=== PATIENT | female | born 1945 | race Caucasian/White ===

== ENCOUNTER 2023-07-09 16:02 | Emergency (ER) | payer MEDICARE, OTHER, SELFPAY ==
[2023-07-09 16:05] VITALS: BP 126/70; PULSE 57; RESP 18; TEMP 36.6; O2SAT 89; BMI 48.7
--- NOTE | 2023-07-09 16:15 | EDS_ITS ---
HPI History of Present Illness HPI Narrative: 77-year-old female was getting a pedicure today. When she went to stand she fell to the floor and had immediate pain to her mid to distal right femur. Denies any other injuries. No LOC. She is on no blood thinners. Says she was feeling fine today. Has not had any recent leg issues. About 15 years ago she had bilateral knee replacements done at [place]. Chief Complaint: Lower Extremity Injury Informant: patient Occured/Mechanism Mechanism/Context: Yes injury and Yes blunt trauma Onset/Context/Timing Onset: Today Context: Sudden Onset Timing: Continuous Current Severity: Moderate Maximum Severity: Severe Narrative Narrative: 77 year-old female fall after getting up from a pedicure injuring her right femur. Denies other complaints. Was brought by squad. And was given IV fentanyl prior to arrival. Prior similar symptoms: No Recent Illness/Hospitalization: No [facility] Medical History (Updated 07/09/23 @ 17:[address] Troy Bales MD) Hypertension Allergy/AdvReac Type Severity Reaction Status Date / Time Penicillins Allergy Mild Rash Verified 07/09/23 16:19 Sulfa (Sulfonamide Allergy Mild Rash Verified 07/09/23 16:19 Antibiotics) Surgical History (Updated 07/09/23 @ 17:[address] Troy Bales MD) Total knee replacement status Social History Smoking Status: Never smoker [facility] ED ENT ENT ED: Denies ear pain Cardiovascular Cardiovascular: Denies chest pain Respiratory/Chest Respiratory/Chest: Denies cough Gastrointestinal Gastrointestinal: Denies abdominal pain Genitourinary Genitourinary ED: Denies dysuria Musculoskeletal Musculoskeletal: Denies arthralgias, back pain or neck pain Integumentary Denies abscess Neurologic Neurologic: Denies headache(s) Psychiatric Psychiatric: Denies anxiety Endocrine Endocrinology: Denies polydipsia Hematologic/Lymphatic Hematologic/Lymphatic: Denies easy bleeding Allergic/Immunologic Allergic/Immunologic ED: Denies mouth swelling EXAM Physical Exam Narrative Exam Narrative: 77 year-old female vital signs are stable afebrile. Initial pulse ox elicited 89% on that rechecked. Patient is awake alert. Sitting upright in bed. She has a 6 air splint on her right lower extremity. She is only having mild pain at this time after the squad are given her IV fentanyl. HEENT exam unremarkable atraumatic. Pupils round reactive light. Neck nontender. Lungs clear equal symmetrical bilaterally. Heart regular rhythm rate about 60 no murmur. Chest wall and ribs nontender. Abdomen soft nontender. Both upper and left lower extremity have normal range of motion. Motor strength and sensation. They are nontender without deformity. 5-5 diet aide strength. Dorsi and plantarflexion intact. Her right leg is in an air splint. She has tenderness along the mid to distal third of the femur. Skins intact. Has had bilateral knee replacements years ago. Well healed scars. Right lower leg is nontender as is the ankle and foot. She is able to wiggle her toes. Normal touch sensation. Normal DP pulse. Neurologically she is awake and alert with no focal motor deficits. Const Vital Signs: 07/09/23 16:05 07/09/23 17:21 Temperature 98 F Temperature Source Axillary Pulse Rate 57 L Respiratory Rate 18 Blood Pressure 126/70 H Blood Pressure Mean 88 Pulse Ox 89 100 Oxygen Delivery Method Room Air Nasal Cannula Oxygen Flow Rate (L/min) 2 Positive well nourished and well developed; Negative for cachectic, contractures or unkempt General Appearance ED: well developed and NAD; Negative for unkempt, cachectic or contractures Nutritional Appearance: Negative for cachectic HEENT Reports moist mucous membranes normocephalic and atraumatic; Negative for trauma or tenderness Eyes PERRL General Eye ED: Negative for other Neck full ROM and supple Thyroid: Negative for tender Lymph Lymphatic: Negative for other Chest Wall inspection of chest normal and palpation of chest normal Chest: Negative for other Resp normal respiratory effort, no retractions and clear to auscultation bilaterally Effort and Inspection: Negative for pain with movement Auscultation: Negative for rales, rhonchi, wheezes or diminished lung sounds Cardio regular rate, regular rhythm, S1 normal heart sound, S2 normal heart sound and no murmurs Cardio Narrative: Heart rate 55-60. Rate: bradycardia GI non-tender, non-distended and no masses Inspection: Negative for abdominal distention Auscultation: normoactive bowel sounds Palpation: soft; Negative for tender, guarding or rebound tenderness present Bladder / Kidney Exam: No other Back/Spine no CVA tenderness General Back: Negative for CVA tenderness Cervical Spine: Negative for cervical spine tenderness Thoracic Spine / Upper Back: Negative for thoracic spinal tenderness Lumbar Spine / Lower Back: Negative for lumbar spinal tenderness Extremity normal to inspection and full ROM Extremity Narrative: Except mid to distal third right femur tenderness. Skin intact. Right foot neurovascular intact. The right knee, lower leg, ankle and foot are nontender. Normal touch sensation. General Extremety ED: Negative for cyanosis or edema General Extremity: Negative for cyanosis or edema Neuro oriented x3, CN's II-XII intact bilaterally, moves all extremities and no sensory deficits noted Sensorium / Orientation: alert, oriented to person, oriented to place and emelyn ented to time; Negative for orientation impaired, confused, lethargic or stuporous Motor Exam: strength 5/5 throughout Psych mental status grossly normal Appearance: Negative for unkempt Mood & Affect: Negative for anxious Skin no wounds Lesions: no lesions Rashes: no rashes Trauma: Negative for abrasion or laceration MDM MDM MDM Narrative Medical decision making narrative: 77-year-old female that fell getting up after a pedicure. Complaining of pain to her mid to distal right femur. X-ray being obtained. Patient be treated with IV morphine and Zofran. She had already received fentanyl by squad. Repeat exam at 520 discussed x-ray results with patient. She will be given another 6 mg of IV morphine for pain. History & Record Review Discussion w/independent historian: Patient and Family Additional record(s) reviewed:: Prior inpatient record, Prior outpatient record, Prior ED visit and Prior labs Lab Data Attestation: I reviewed the patient's lab results. Lab results narrative: CBC shows a white count 8. H&H 11.7 and 37. Platelets 203. Pelvis right hip x-ray shows no acute abnormality. Right femur x-ray shows a distal femur fracture just above the right knee prosthesis. It is displaced and comminuted. PT/INR normal. 1301. Electrolytes shows gap 3. BUN of 20 creatinine 1.31. Glucose 108. Repeat exam patient doing well at 5:20 PM. I did go over the x-rays with her. She understands she has a distal femur fracture. I spoke to orthopedic physician and he felt like the patient should be sent to a larger facility. I have already spoken to the transfer line for [facility] and they are speaking to the orthopedic physician about transfer arrangements. Labs: Laboratory Results - last 24 hr 07/09/23 17:03 WBC 8.4 RBC 3.90 L Hgb 11.7 L Hct 37.0 MCV 94.9 MCH 30.0 MCHC 31.6 L RDW Std Deviation 47.8 H RDW Coeff of Elio 13.8 Plt Count 203 MPV 10.7 PT 13.0 INR 1.0 Sodium 142 Potassium 4.1 Chloride 112 H Carbon Dioxide 27.0 Anion Gap 3 L BUN 20 H Creatinine 1.31 H Estim Creat Clear Calc 42.54 Est GFR (MDRD) Af Amer 51 L Est GFR (MDRD) Non-Af 42 L BUN/Creatinine Ratio 15.3 Glucose 108 H Calcium 7.8 L Radiography Diagnostic Testing: Right femur x-ray shows a distal femur fracture just above the prosthesis. It is comminuted and 100% displaced. 5 views interpreted by myself. Pelvis x-ray, 1 view, interpreted by myself shows no acute abnormality. No fracture or dislocation. Discharge Plan Triage Chief Complaint: Lower Extremity Injury ED Provider: Troy Bales Dx/Rx/DC Orders Clinical Impression: History of knee replacement, Fracture, femur, distal, History of hypertension, Fall Primary Care Provider: Alvarado Andrea Referrals: Alvarado Andrea MD [Primary Care Provider] - Disposition Disposition: Acute Care Hospital
[2023-07-09] MEDS: Ondansetron 4 MG/2 ML Vial IV (16:31)
[2023-07-09] MEDS: morphine 8 MG/ML Syringe 6 MG IV ×3 (16:32→21:14)
--- NOTE | 2023-07-09 17:00 | RAD_ITS ---
INDICATION: Trauma, fall, pain EXAMINATION/TECHNIQUE: X-RAY - RIGHT XR Femur Min 2 Views 2 VIEWS COMPARISON: None. FINDINGS: SOFT TISSUES: No soft tissue swelling or gas. Right knee prosthesis in place. BONES/JOINTS: Displaced, comminuted and angulated fracture of the distal femur proximal to the knee prosthesis with one shaft width posterior displacement of the distal fragment. Joint spaces anatomically maintained. RAD/Femur Min 2 Views IMPRESSION: Comminuted, displaced and angulated fracture of the distal femur. Electronically Signed: Kishan Calvillo MD at 17:46 EDT ,
--- NOTE | 2023-07-09 17:00 | RAD_ITS ---
INDICATION: Trauma, fall, pain EXAMINATION/TECHNIQUE: X-RAY - XR Pelvis 1 or 2 Views COMPARISON: None. FINDINGS: PELVIC BONES: No displaced fracture, destructive or sclerotic lesions. Note that overlapping bowel shadows may however obscure fine detail. Sacroiliac joints are unremarkable. No widening of the pubic symphysis. HIPS: The articular structures are unremarkable. No displaced fracture seen in this frontal view. SOFT TISSUES: No soft tissue swelling or gas. RAD/Pelvis 1 or 2 Views IMPRESSION: No evidence of displaced pelvic or hip fracture. Electronically Signed: Kishan Calvillo MD at 17:48 EDT ,
[2023-07-09 17:11] LABS: Hemoglobin 11.7 g/dL (12.0-15.0); Mean Corp Hgb Conc 31.6 g/dL (32-36); Mean Corpuscular Volume 94.9 fL (81-99); Mean Platelet Vol. 10.7 fl (6.2-12.0); Platelet Count 203 K/mm3 (150-450); RBC Distribution Width CV 13.8 % (11.6-14.6); RBC Distribution Width SD 47.8 fl (35.1-43.9); White Blood Count 8.4 K/mm3 (4.4-11.0)
[2023-07-09 17:21] VITALS: O2SAT 100
[2023-07-09 17:24] LABS: Anion Gap 3 (5-15); BUN 20 mg/dL (7-18); BUN/Creat Ratio 15.3 RATIO (10-20); Calcium,Total 7.8 mg/dL (8.5-10.1); Chloride 112 mmol/L (98-107); Creatinine, Serum 1.31 mg/dL (0.55-1.02); EST Glomerular Filtration Rate 42 mL/min (>60); Est Glom Filt Rate - Afr Amer 51 mL/min (>60); Estimated Creatinine Clearance 42.54 ml/min; Glucose 108 mg/dL (74-106); Potassium 4.1 mmol/L (3.5-5.1); Sodium Level 142 mmol/L (136-145)
[2023-07-09 18:04] VITALS: BP 129/69; PULSE 77; RESP 20; O2SAT 95
[2023-07-09 20:00] VITALS: BP 119/56; PULSE 54; RESP 16; O2SAT 98
[2023-07-09 21:45] VITALS: BP 132/86; PULSE 82; RESP 16; TEMP 36.6; O2SAT 94
== END 2023-07-09 21:48 | disposition short-term general hospital (02) ==
PROVIDERS: Emergency Provider Emergency Medicine; PCP Family Medicine Geriatric Medicine; Visit Provider Emergency Medicine
DX: S72.401A Unspecified fracture of lower end of right femur, initial encounter for closed fracture (principal); M97.11XA Periprosthetic fracture around internal prosthetic right knee joint, initial encounter; W19.XXXA Unspecified fall, initial encounter; I10 Essential (primary) hypertension; Z96.653 Presence of artificial knee joint, bilateral
CPT/HCPCS: 72170; 73552; 80048; 85027; 85610; 96374; 96375; 96376; 99284; A4216; J2405